=== PATIENT | male | born 2000 | race Caucasian/White ===

== ENCOUNTER 2021-04-19 19:01 | Emergency (ER) | payer BC ==
[~2021-04-19] VITALS: Ht 195.6 cm; Wt 152.3 kg
[2021-04-19 19:18] VITALS: TEMP 98.7
[2021-04-19 19:45] LABS: BASO % 0.6 % (0.0-2.0); EOS % 0.3 % (0.0-4.0); GRAN # 5.1 K/mm3 (1.4-6.5); GRAN % 77.1 % (42.2-75.2); HEMATOCRIT 41.1 % (42.0-52.0); HEMOGLOBIN 13.7 g/dl (13.5-18.0); LYMPH # 0.5 K/mm3 (1.2-3.4); LYMPH % 7.4 % (20.0-51.0); MEAN CELL VOLUME 81 fl (80.0-100.0); MEAN CORPUSCULAR HEMOGLOBIN 27 pg (27-31); MEAN CORPUSCULAR HGB CONC 33 g/dl (33.0-37.0); MEAN PLATELET VOLUME 10.1 fl (7.4-10.4); MONO % 14.3 % (1.7-9.3); PLATELET COUNT 300 K/mm3 (130-400); RED BLOOD COUNT 5.08 M/mm3 (4.20-5.60); REDCELL DISTRIBUTION WIDTH-CV 13.5 % (11.5-14.5)
[2021-04-19 20:02] LABS: ALANINE AMINOTRANSFERASE 39 U/L (0-55); ALKALINE PHOSPHATASE 72 U/L (40-150); ANION GAP 12 mmol/L (7-16); AST,SGOT 26 U/L (5-34); BILIRUBIN,TOTAL 0.3 mg/dL (0.2-1.2); BLOOD UREA NITROGEN 13 mg/dL (9-21); CALCIUM 8.8 mg/dL (8.4-10.2); CARBON DIOXIDE 21 mmol/L (22-29); CHLORIDE 106 mmol/L (98-107); CREATININE, serum 0.88 mg/dL (0.72-1.25); GLUCOSE 97 mg/dL (70-99); POTASSIUM 3.8 mmol/L (3.5-4.5); SODIUM 139 mmol/L (136-145); TOTAL PROTEIN 7.3 gm/dL (6.2-8.1)
[2021-04-19 20:20] LABS: TROPONIN-I < 0.010 ng/mL (0.00-0.033)
[2021-04-19 22:22] VITALS: BP 140/51; PULSE 101
== END 2021-04-19 22:22 | disposition home or self-care (01) ==
LOC: COL.ER 19:01
PROVIDERS: Emergency Medicine
DX: U07.1 COVID-19 (principal); R00.0 Tachycardia, unspecified; R79.1 Abnormal coagulation profile
CPT/HCPCS: Q9967

== ENCOUNTER → 2021-04-30 | Outpatient (CLI) | payer BC | LOC: COL.RAD 04-23 09:00 | DX: K44.9 Diaphragmatic hernia without obstruction or gangrene (principal) ==

== ENCOUNTER 2021-05-15 18:00 | Emergency (ER) | payer BC ==
[~2021-05-15] VITALS: Ht 195.6 cm; Wt 147.7 kg
[2021-05-15 18:24] VITALS: TEMP 97.2
[2021-05-15 18:49] LABS: COLLECTION METHOD CLEAN CATCH
[2021-05-15 18:58] LABS: URINE APPEARANCE Clear (CLEAR/HAZY); URINE COLOR Yellow (YELLOW)
[2021-05-15 18:59] LABS: PH 6 (5-8); URINE BILIRUBIN Negative (NEGATIVE); URINE GLUCOSE Negative (NEGATIVE); URINE KETONE Negative (NEGATIVE); URINE NITRATE Negative (NEGATIVE); URINE PROTEIN(semi-quant) Negative (NEGATIVE); URINE UROBILINOGEN Negative (NEGATIVE)
[2021-05-15 19:13] LABS: URINE LEUKOCYTE ESTERASE Negative (NEGATIVE)
[2021-05-15 19:16] LABS: URINE BLOOD Negative (NEGATIVE)
[2021-05-15 19:17] LABS: URINE RBC None Seen /hpf (0-2)
[2021-05-15 19:18] LABS: MUCOUS Present (NOT PRESENT)
[2021-05-15] MEDS ORDERED: NAPROSYN500 MG PO (19:23)
[2021-05-15] MEDS ORDERED: FLEXERIL 1010 MG/TAB PO (19:23)
[2021-05-15 20:24] VITALS: BP 144/70; PULSE 76
== END 2021-05-15 20:24 | disposition home or self-care (01) ==
LOC: COL.ER 18:00
PROVIDERS: Nurse Practitioner Primary Care
DX: M54.6 Pain in thoracic spine (principal)
CPT/HCPCS: J1885

== ENCOUNTER → 2023-12-02 | Outpatient (CLI) | payer BC ==
[~2023-12-02] MED LIST: FLEXERIL 1010 MG/TAB PO; NAPROSYN500 MG PO
== END ==
LOC: COL.RAD 13:44
DX: R19.09 Other intra-abdominal and pelvic swelling, mass and lump (principal)